=== PATIENT | female | born 1975 | race American Indian/Alaskan Native ===

== ENCOUNTER 2018-02-07 15:25 | Emergency (ER) | payer OTHER ==
[2018-02-07 15:31] VITALS: TEMP 98.9
[2018-02-07 15:39] VITALS: BMI 34.1
--- NOTE | 2018-02-07 15:57 | ED PDOC ---
Arrival/HPI - General Chief Complaint: Female Genitourinary Time Seen by Provider: 02/07/18 15:26 Historian: Patient - History of Present Illness Narrative History of Present Illness (Text): 02/07/18 15:47 42 year old female, pmh including asthma, no known food or drug allergies, presents to the Emergency department for prophylatic treatment of gonorrhea and chlamydia s/p unprotected sexual activity after 24 hours. Patient states concern for gc/chlamydia and requests prophylactic care as patient does not have a PMD. Pt. also stated that she would like to have plan B prescription as well as she had unprotected sex. Patient denies any fever, chills, nausea, vomiting, diarrhea, abdominal pain, chest pain, shortness of breath, vaginal discharge, pelvic pain, change in energy, or any other complaints. Time/Duration: 24 hours Symptom Onset: Gradual Activities at Onset: Light Context: Home Past Medical History - Provider Review Nursing Documentation Reviewed: Yes - Cardiac Hx Cardiac Disorders: No - Pulmonary Hx Asthma: Yes - Neurological Hx Neurological Disorder: No - HEENT Hx HEENT Disorder: No - Renal Hx Renal Disorder: No - Endocrine/Metabolic Hx Endocrine Disorders: No - Hematological/Oncological Hx Blood Disorders: No - Integumentary Hx Dermatological Disorder: No - Musculoskeletal/Rheumatological Hx Musculoskeletal Disorders: No - Gastrointestinal Hx Gastrointestinal Disorders: No - Genitourinary/Gynecological Hx Genitourinary Disorders: No - Psychiatric Hx Psychophysiologic Disorder: No Hx Substance Use: No Family/Social History - Physician Review Nursing Documentation Reviewed: Yes Family/Social History: No Known Family HX Smoking Status: Never Smoked Hx Alcohol Use: No Hx Substance Use: No Allergies/Home Meds Allergies/Adverse Reactions: Allergies No Known Allergies Allergy (Verified 02/07/18 15:31) Home Medications: Home Meds Medication Instructions Recorded Confirmed Albuterol HFA [Ventolin HFA 90 0 mg IH PRN PRN 02/07/18 02/07/18 mcg/actuation (8 g)] Review of Systems - Physician Review All systems were reviewed & negative as marked: Yes - Review of Systems Constitutional: Normal. absent: Fevers Eyes: Normal ENT: Normal Respiratory: Normal Cardiovascular: Normal. absent: Chest Pain Gastrointestinal: Normal. absent: Abdominal Pain, Diarrhea, Nausea, Vomiting Genitourinary Female: Normal. absent: Dysuria, Frequency, Vaginal Discharge, Other (no pelvic pain) Musculoskeletal: Normal Skin: Normal Neurological: Normal Endocrine: Normal Hemo/Lymphatic: Normal Psychiatric: Normal Physical Exam Vital Signs Reviewed: Yes Vital Signs Temp Pulse Resp BP Pulse Ox 02/07/18 15:31 98.9 F 71 17 100/65 96 Temperature: Afebrile Blood Pressure: Normal Pulse: Regular Respiratory Rate: Normal Appearance: Positive for: Well-Appearing, Non-Toxic, Comfortable Pain Distress: None Mental Status: Positive for: Alert and Oriented X 3 - Systems Exam Head: Present: Atraumatic, Normocephalic Pupils: Present: PERRL Extroacular Muscles: Present: EOMI Conjunctiva: Present: Normal Mouth: Present: Moist Mucous Membranes Neck: Present: Normal Range of Motion Respiratory/Chest: Present: Clear to Auscultation, Good Air Exchange. No: Respiratory Distress, Accessory Muscle Use Cardiovascular: Present: Regular Rate and Rhythm, Normal S1, S2. No: Murmurs Abdomen: No: Tenderness, Distention, Peritoneal Signs Genitourinary/Pelvic Exam: Present: Other (pt. declined) Back: Present: Normal Inspection Upper Extremity: Present: Normal Inspection. No: Cyanosis, Edema Lower Extremity: Present: Normal Inspection. No: Edema Neurological: Present: GCS=15, CN II-XII Intact, Speech Normal Skin: Present: Warm, Dry, Normal Color. No: Rashes Psychiatric: Present: Alert, Oriented x 3, Normal Insight, Normal Concentration Medical Decision Making ED Course and Treatment: 02/07/18 16:01 - test is engative -Rocephine 250mg IM and azithromycin 1gm po/flagyl 2gm po with zofran 4mg po, advised not to drink any alcohol for the next 24 hours. -Pt. request plan B prescription as well since her is negative, sexual intercouse within 24 hours. -Discharge home with plan B, please use condomn in the future, follow up with your own pmd for the STD panel test, return to the ER for any new or worsening signs or symptoms. - PA / CUSTOMER SERVICE TELLER / Resident Statement MD/DO has reviewed & agrees with the documentation as recorded. - Scribe Statement The provider has reviewed the documentation as recorded by the Scribe Karin Brown, training under Joaquín Meyer. All medical record entries made by the Scribe were at my direction and personally dictated by me. I have reviewed the chart and agree that the record accurately reflects my personal performance of the history, physical exam, medical decision making, and the department course for this patient. I have also personally directed, reviewed, and agree with the discharge instructions and disposition. Disposition/Present on Arrival - Present on Arrival Any Indicators Present on Arrival: No History of DVT/PE: No History of Uncontrolled Diabetes: No Urinary Catheter: No History of Decub. Ulcer: No History Surgical Site Infection Following: None - Disposition Have Diagnosis and Disposition been Completed?: Yes Diagnosis: Possible exposure to STD, Unprotected sex Disposition: HOME/ ROUTINE Disposition Time: 16:10 Patient Plan: Discharge Condition: GOOD Additional Instructions: -Discharge home with plan B, please use condomn in the future, follow up with your own pmd for the STD panel test, return to the ER for any new or worsening signs or symptoms. Prescriptions: Levonorgestrel [Plan B One-Step] 1 tab PO ONCE #1 tab Referrals: Buffy Ny MD [Staff Provider] - Follow up with primary [facility] [place] [Outside] - Follow up with primary Forms: WORK NOTE
[2018-02-07] MEDS ORDERED: cefTRIAXone (Rocephin) 250 mg Inj IM STA (16:05)
[2018-02-07 16:41] VITALS: BP 112/78; PULSE 76; RESP 18; O2SAT 99
== END 2018-02-07 16:41 | disposition home or self-care (01) ==
LOC: ED 15:25
DX: Z20.2 Contact with and (suspected) exposure to infections with a predominantly sexual mode of transmission (principal)
CPT/HCPCS: 96372; 99284; J0696

== ENCOUNTER 2018-11-24 11:25 | Emergency (ER) | payer MEDICAID, OTHER ==
[2018-11-24 11:34] VITALS: BMI 37.4
[2018-11-24 11:36] VITALS: O2SAT 98
--- NOTE | 2018-11-24 12:07 | ED PDOC ---
Arrival/HPI - General Chief Complaint: Female Genitourinary Time Seen by Provider: 11/24/18 11:38 Historian: Patient - History of Present Illness Narrative History of Present Illness (Text): 11/24/18 12:02 A 43 year old female presents to the emergency department with a complaint of 5 day duration brown vaginal discharge and suprapubic abdominal pain. The patient reports that she is sexually active and uses protection. The patient notes that she is currently on her menstrual period. She denies fevers, chills, headache, dizziness, chest pain, shortness of breath, dyspnea on exertion, cough, abdominal pain, nausea, vomiting, diarrhea, back pain, neck pain, urinary/bowel changes, or any other complaint. Time/Duration: Other (5 days) Symptom Onset: Gradual Symptom Course: Unchanged Activities at Onset: Rest, Light Context: Home Past Medical History - Provider Review Nursing Documentation Reviewed: Yes - Infectious Disease Hx of Infectious Diseases: None - Cardiac Hx Cardiac Disorders: No - Pulmonary Hx Asthma: Yes - Neurological Hx Neurological Disorder: No - HEENT Hx HEENT Disorder: No - Renal Hx Renal Disorder: No - Endocrine/Metabolic Hx Endocrine Disorders: No - Hematological/Oncological Hx Blood Disorders: No - Integumentary Hx Dermatological Disorder: No - Musculoskeletal/Rheumatological Hx Musculoskeletal Disorders: No - Gastrointestinal Hx Gastrointestinal Disorders: No - Genitourinary/Gynecological Hx Genitourinary Disorders: No - Psychiatric Hx Psychophysiologic Disorder: No Hx Substance Use: No - Surgical History Other/Comment: gastric sleeve - Anesthesia Hx Anesthesia: Yes Hx Anesthesia Reactions: No Hx Malignant Hyperthermia: No Family/Social History - Physician Review Nursing Documentation Reviewed: Yes Family/Social History: No Known Family HX Smoking Status: Never Smoked Hx Alcohol Use: Yes Frequency of alcohol use: Socially Hx Substance Use: No Allergies/Home Meds Allergies/Adverse Reactions: Allergies iodine Allergy (Verified 11/24/18 11:34) ANAPHYLAXIS Home Medications: Home Meds Medication Instructions Recorded Confirmed Albuterol HFA [Ventolin HFA 90 0 mg IH PRN PRN 02/07/18 11/24/18 mcg/actuation (8 g)] Review of Systems - Physician Review All systems were reviewed & negative as marked: Yes - Review of Systems Constitutional: absent: Fevers Respiratory: absent: SOB, Cough Cardiovascular: absent: Chest Pain, HARRELL Gastrointestinal: absent: Abdominal Pain, Stool Changes, Diarrhea, Nausea, Vomiting Genitourinary Female: absent: Urine Output Changes Musculoskeletal: absent: Back Pain, Neck Pain Neurological: absent: Headache, Dizziness Physical Exam Vital Signs Reviewed: Yes Vital Signs Temp Pulse Resp BP Pulse Ox 11/24/18 11:35 98.2 F 72 18 111/77 98 Temperature: Afebrile Blood Pressure: Normal Pulse: Regular Respiratory Rate: Normal Appearance: Positive for: Well-Appearing, Non-Toxic, Comfortable Pain Distress: None Mental Status: Positive for: Alert and Oriented X 3 Medical Decision Making ED Course and Treatment: 11/24/18 12:09 Impression: A 43 year old female presents to the emergency department with a complaint of 5 day duration vaginal discharge and suprapubic abdominal pain. Plan: -- Urinalysis -- Labs -- Reassess and disposition Prior Visits: Notes and results from previous visits were reviewed. Progress Notes: 11/24/18 12:33: Patient refusing pelvic exam. 11/24/18 17:23 refuses pelvic exam. refuess ultrasound. asking for dischage urine neg. cannot exclude pid/abcess/std. will empricially treat. sigsn ama - Lab Interpretations I have reviewed the lab results: Yes - Scribe Statement The provider has reviewed the documentation as recorded by the Scribe Edie Morales Provider Scribe Attestation: All medical record entries made by the Scribe were at my direction and personally dictated by me. I have reviewed the chart and agree that the record accurately reflects my personal performance of the history, physical exam, medical decision making, and the department course for this patient. I have also personally directed, reviewed, and agree with the discharge instructions and disposition. Disposition/Present on Arrival - Present on Arrival Any Indicators Present on Arrival: No History of DVT/PE: No History of Uncontrolled Diabetes: No Urinary Catheter: No History of Decub. Ulcer: No History Surgical Site Infection Following: None - Disposition Have Diagnosis and Disposition been Completed?: Yes Diagnosis: Pelvic pain Disposition: AGAINST MEDICAL ADVICE Disposition Time: 13:00 Condition: UNKNOWN Discharge Instructions (ExitCare): Pelvic Inflammatory Disease, Screening for Sexually Transmitted Infections, Leaving Against Medical Advice Prescriptions: Doxycycline Hyclate 100 mg PO BID #20 capsule Referrals: FAMILY PROVIDER,NO [Primary Care Provider] - Follow up with primary Forms: Senior Living (Japanese), WORK NOTE Against Medical Advice - AMA Patient Left Against Medical Advice: The patient declines admission to the hospital and wishes to leave the Emergency Department. This action is against my medical advice. This decision was made with informed refusal. The patient was told that admission to the hospital is necessary. Explanation of the reasons why were discussed. The risks of leaving were explained to the patient and include, but are not limited to, worsening of known or currently unknown conditions, permanent disability and from undiagnosed or untreated conditions. The patient has the capacity to make this informed decision and understands my explanation of the current medical problem and risks of leaving. The patient voluntarily accepts these risks and signed an AMA form documenting our conversation. The patient was given the opportunity to ask questions and reconsider. The patient was encouraged to return to the Emergency Department at any time for further care.
[2018-11-24 12:20] LABS: URINE APPEARANCE CLEAR (CLEAR); URINE BILIRUBIN NEGATIVE (NEGATIVE); URINE BLOOD LARGE (NEGATIVE); URINE COLOR YELLOW (YELLOW); URINE GLUCOSE (UA) NEGATIVE (NEGATIVE); URINE LEUKOCYTE ESTERASE NEGATIVE Leu/uL (NEGATIVE); URINE PROTEIN NEGATIVE mg/dL (<30 mg/dL); URINE UROBILINOGEN 0.2 E.U./dL (<1 E.U./dL)
[2018-11-24 12:21] LABS: HCG,QUALITATIVE URINE NEGATIVE (NEGATIVE)
[2018-11-24 12:32] LABS: URINE BACTERIA MANY /hpf; URINE RBC 25 - 30 /hpf (0-2)
[2018-11-24 12:33] LABS: URINE AMORPHOUS SEDIMENT FEW /hpf
[2018-11-24] MEDS ORDERED: cefTRIAXone (Rocephin) 250 mg Inj IM STA (12:36)
[2018-11-24 13:08] VITALS: BP 118/78; PULSE 81; RESP 14; TEMP 98.3
== END 2018-11-24 13:08 | disposition left against medical advice (07) ==
LOC: ED 11:25
DX: R10.2 Pelvic and perineal pain (principal)
CPT/HCPCS: 81001; 81025; 84703; 87491; 87591; 96372; 99283; J0696